=== PATIENT | male | born 1985 | race African-American/Black ===

== ENCOUNTER 2016-12-13 | Emergency (ER) | payer MEDICAID | END 2016-12-13 11:18 | disposition home or self-care (01) ==

== ENCOUNTER 2019-09-10 09:19 | Emergency (ER) | payer MEDICAID, OTHER ==
[2019-09-10 09:30] VITALS: BP 133/88
[2019-09-10] MEDS ORDERED: BUFFERED LIDOCAINE 10 ML SYRINGE SUBQ STA (11:25)
--- NOTE | 2019-09-10 12:50 | ED Physician Documentation ---
PD HPI SKIN - Stated complaint Stated Complaint: SORE ON HEAD - Chief complaint Chief Complaint: Wound - History obtained from History obtained from: Patient - History of Present Illness Timing - onset: How many years ago (7) Timing - duration: Years Timing - details: Gradual onset, Still present Location: Scalp Quality / character: Raised. No: Swelling, Draining Similar symptoms before: Diagnosis (wenn) Recently seen: Not recently seen - Additional information Additional information: 34-year-old male who has recently shaved his head and has had a lump in his scalp for years. This is now beginning to bother him quite a bit. His fairly good sized and he is wondering if he can get it taken out. He states that once previously he drained something from it but he has not been able to do anything since and it has not been inflamed or particularly sore. Review of Systems Constitutional: denies: Fever Eyes: denies: Decreased vision Ears: denies: Ear pain Nose: denies: Congestion Respiratory: denies: Dyspnea, Cough GI: denies: Vomiting Skin: reports: Other (lump in the scalp) PD PAST MEDICAL HISTORY - Past Medical History Past Medical History: No - Past Surgical History Past Surgical History: No - Present Medications Home Medications: Ambulatory Orders Medication Instructions Recorded Confirmed Azithromycin [Zithromax] 0 mg PO DAILY #6 tablet 12/13/16 Benzonatate [Tessalon Perle] 100 mg PO TID PRN #20 capsule 12/13/16 Cetirizine HCl/Pseudoephedrine 1 each PO BID PRN #30 tab.er.12h 12/13/16 [Zyrtec-D Tablet] - Allergies Allergies/Adverse Reactions: Allergies Allergy/AdvReac Type Severity Reaction Status Date / Time No Known Drug Allergies Allergy Verified 12/13/16 10:20 - Social History Does the pt smoke?: No Smoking Status: Never smoker Does the pt drink ETOH?: No Does the pt have substance abuse?: No - Immunizations Immunizations are current?: Yes PD ED PE NORMAL - Vitals Vital signs reviewed: Yes (hypertensive mild) - General General: Alert and oriented X 3, No acute distress, Well developed/nourished - HEENT HEENT: PERRL, EOMI, Other (There is a 2cm mass to the right parietal area that is firm and non-tender. The mass is consistent with a sebaceous cyst and does not appear acutely inflammed. ) - Neck Neck: Supple, no meningeal sign, No bony TTP - Respiratory Respiratory: No respiratory distress - Derm Derm: Normal color, Warm and dry, Other (2cm mass in scalp) - Extremities Extremities: No deformity, No edema - Neuro Neuro: Alert and oriented X 3, tie cutter 2-12 intact, No motor deficit, No sensory deficit, Normal speech Eye Opening: Spontaneous Motor: Obeys Commands Verbal: Oriented GCS Score: 15 - Psych Psych: Normal mood, Normal affect Results - Vitals Vitals: Vital Signs - 24 hr 09/10/19 09:27 Temperature 36.8 C Heart Rate 62 Respiratory 18 Rate Blood Pressure 133/88 H O2 Saturation 98 Oxygen O2 Source Room air Procedures - General procedure General procedure: Removal of sebaceous cyst: The area was prepped with Hibiclens and draped in a sterile fashion the skin was infiltrated with 1% lidocaine buffered with bicarbonate and a #15 blade was used to incise the skin and with blunt dissection the cyst is dissected away from the underlying tissues and the adhesions to the bottom of our cut with a scissors. There is minimal leakage of sebum and no evidence of purulence. Patient tolerates procedure well and following removal of the mass the wound is irrigated with saline and closed with 3 sutures of 4-0 Ethilon. PD MEDICAL DECISION MAKING - ED course Complexity details: considered differential, d/w patient ED course: 34-year-old male who waits in the emergency department 2 hours to be seen for a sebaceous cyst that he wants removed appears to have a cyst that is not inflamed and removal is done as described. The patient is thankful. Departure - Departure Disposition: 01 Home, Self Care Clinical Impression: Sebaceous cyst, [place] Condition: Stable Instructions: ED Cyst Sebaceous Follow-Up: [facility] [Provider Group] Comments: suture should be removed in 7-10 days
== END 2019-09-10 13:03 | disposition home or self-care (01) ==
LOC: ED 09:19
DX: L72.3 Sebaceous cyst (principal)
CPT/HCPCS: 10040; 99283

== ENCOUNTER 2019-10-22 08:23 | Emergency (ER) | payer MEDICAID ==
[2019-10-22 08:52] VITALS: BP 122/80
[2019-10-22] MEDS: TETANUS/DIPHTHERIA/PERTUSSIS 0.5 ML SYRINGE IM ONE (10:19)
--- NOTE | 2019-10-22 10:57 | ED Physician Documentation ---
PD HPI LOWER EXT INJURY - Stated complaint Stated Complaint: L DOLL INJURY - Chief complaint Chief Complaint: Trauma Ext - History obtained from History obtained from: Patient - History of Present Illness PD HPI LOW EXT INJURY LOCATION: Left, Other (doll) Type of injury: Blunt / blow (against a playground equipment) Where injury occurred: [place] Timing - onset: How many days ago (4) Timing - duration: Days (4) Timing - details: Abrupt onset Severity Comments: moderate Improved by: Nothing Worsened by: Palpating Associated symptoms: Other (denies numbness, weakness or tingling. has mild focal swelling over the abrasion) Contributing factors: Other (none, pt's tetanus is not up to date) Similar symptoms before: Has not had sx before Recently seen: Not recently seen - Treatment prior to arrival Treatment prior to arrival: none - Additional information Additional information: Pt states it hurts to walk on the doll for the last week and he would like an xray. Review of Systems Ten Systems: 10 systems reviewed and negative Constitutional: reports: Reviewed and negative Skin: reports: Abrasion (s) Musculoskeletal: reports: Extremity pain Neurologic: reports: Reviewed and negative Immunocompromised: reports: Reviewed and negative PD PAST MEDICAL HISTORY - Past Medical History Past Medical History: No - Past Surgical History Past Surgical History: No - Present Medications Home Medications: Ambulatory Orders Medication Instructions Recorded Confirmed Azithromycin [Zithromax] 0 mg PO DAILY #6 tablet 12/13/16 Benzonatate [Tessalon Perle] 100 mg PO TID PRN #20 capsule 12/13/16 Cetirizine HCl/Pseudoephedrine 1 each PO BID PRN #30 tab.er.12h 12/13/16 [Zyrtec-D Tablet] - Allergies Allergies/Adverse Reactions: Allergies Allergy/AdvReac Type Severity Reaction Status Date / Time No Known Drug Allergies Allergy Verified 10/22/19 08:47 - Social History Does the pt smoke?: No Smoking Status: Never smoker Does the pt drink ETOH?: No Does the pt have substance abuse?: No - Immunizations Immunizations are current?: Yes PD ED PE NORMAL - Vitals Vital signs reviewed: Yes - General General: Alert and oriented X 3, No acute distress, Well developed/nourished - HEENT HEENT: Atraumatic, Moist mucous membranes - Cardiac Cardiac: RRR - Respiratory Respiratory: No respiratory distress - Abdomen Abdomen: Non distended - Male Male : Deferred - Rectal Rectal: Deferred - Derm Derm: Normal color, No rash - Extremities Extremities: No deformity, Normal ROM s pain, No edema, No calf tenderness / cord - Neuro Neuro: Alert and oriented X 3, No motor deficit, No sensory deficit Eye Opening: Spontaneous Motor: Obeys Commands Verbal: Oriented GCS Score: 15 - Psych Psych: Normal mood, Normal affect PD ED PE EXPANDED - Extremities Extremities: Motor intact, Sensory intact, Vascular intact, Other (L doll with small healing abrasion and no bony tenderness or deformity. pt ambulating without difficulty,) Results - Vitals Vitals: Oxygen O2 Source Room air PD MEDICAL DECISION MAKING - ED course Complexity details: considered differential, d/w patient ED course: ddx- contusion, abrasion 34 y/o M with hx and exam as documented, tetanus not up to date. Has no significant deformity or bony injury or tenderness on exam to the L doll. Neurovascularly intact. Pt ambulating without difficulty. Updated tetanus status. Advised pt need to irrigate wound, apply topical triple antibiotic. No emergent imaging is indicated at this time. By mechanism and exam, there is no evidence of bony injury. I updted pt's tetanus and he stated he doesn't want this, he wants an xray. I discussed that an emergent xray is not indicated with the pt and his need to f/u with PCP if symptoms persist. Departure - Departure Disposition: 01 Home, Self Care Clinical Impression: Skin abrasion Condition: Stable Record reviewed to determine appropriate education?: Yes Instructions: ED Abrasion Follow-Up: your, doctor [Other] Comments: Your exam is consistent with a doll abrasion and not consistent with a fracture or bony injury. Your tetanus status was updated. You should use bacitracin for the injury. You should follow up with your doctor if symptoms persist. Discharge Date/Time: 10/22/19 11:10
== END 2019-10-22 11:10 | disposition home or self-care (01) ==
LOC: ED 08:23
DX: S80.812A Abrasion, left lower leg, initial encounter (principal); W22.8XXA Striking against or struck by other objects, initial encounter; Y92.830 Public park as the place of occurrence of the external cause; Z23 Encounter for immunization
CPT/HCPCS: 90471; 99282

== ENCOUNTER 2019-12-03 14:36 | Outpatient (CLI) | payer MEDICAID ==
[2019-12-03 18:41] LABS: BASOPHILS % (AUTO) 0.4 %; EOSINOPHILS # (AUTO) 0.1 10^3/uL (0.0-0.7); EOSINOPHILS % (AUTO) 1.2 %; HGB - HEMOGLOBIN 14.1 g/dL (14.0-18.0); LYMPHOCYTES # (AUTO) 2.7 10^3/uL (1.5-3.5); MEAN CORPUSCULAR HEMOGLOBIN 28.8 pg (27.0-31.0); MEAN CORPUSCULAR HGB CONC 32.4 g/dL (32.0-36.0); MEAN CORPUSCULAR VOLUME 88.8 fL (80.0-94.0); MEAN PLATELET VOLUME 11.5 fL (7.4-11.4); MONOCYTES # (AUTO) 0.7 10^3/uL (0.0-1.0); MONOCYTES % (AUTO) 8.1 %; NEUTROPHILS # (AUTO) 4.6 10^3/uL (1.5-6.6); NEUTROPHILS % (AUTO) 56.9 %; PLT - PLATELET COUNT 276 10^3/uL (130-450); WHITE BLOOD COUNT 8.1 x10^3/uL (4.8-10.8)
[2019-12-03 19:10] LABS: ALBUMIN 4.6 g/dL (3.2-5.5); ALBUMIN/GLOBULIN RATIO 1.5 (1.0-2.2); ALKALINE PHOSPHATASE 78 IU/L (42-121); ALT ALANINE AMINOTRANSFERASE 22 IU/L (10-60); AST ASPARTATE AMINOTRANSFERASE 19 IU/L (10-42); BILIRUBIN,TOTAL 0.4 mg/dL (0.2-1.0); BUN - BLOOD UREA NITROGEN 9 mg/dL (6-20); CALCIUM 9.8 mg/dL (8.5-10.3); CARBON DIOXIDE - CO2 27 mmol/L (21-32); CHLORIDE 103 mmol/L (101-111); CHOL/HDL RATIO 5.5 (<5.0); CHOLESTEROL 181 mg/dL; CREATININE 0.9 mg/dL (0.6-1.2); GFR - MDRD 116 (>89); GLUCOSE 81 mg/dL (70-100); HDL CHOLESTEROL 33 mg/dL; LDL CHOLESTEROL,CALCULATED 113 mg/dL; LDL/HDL RATIO 3.4 (<3.6); SODIUM 140 mmol/L (135-145); TOTAL PROTEIN 7.6 g/dL (6.7-8.2); VLDL CHOLESTEROL 35 mg/dL
== END 2019-12-03 23:59 | disposition home or self-care (01) ==
LOC: LAB.N 14:36
PROVIDERS: ATTEND Physician Assistant Medical
DX: Z00.00 Encounter for general adult medical examination without abnormal findings (principal); N52.9 Male erectile dysfunction, unspecified; E55.9 Vitamin D deficiency, unspecified
CPT/HCPCS: 36415; 80053; 80061; 82306; 83721; 84443; 85025